=== PATIENT | male | born 1995 | race Caucasian/White ===

== ENCOUNTER 2021-02-14 14:54 | Emergency (ER) | payer SELFPAY ==
[~2021-02-14] VITALS: Ht 170.2 cm; Wt 86.2 kg
[2021-02-14 15:25] VITALS: BP_SYST 137
[2021-02-14] MEDS ORDERED: BACITRACIN 1 GM OINT TP ONE (16:58)
[2021-02-14] MEDS ORDERED: CEPH500C2 PO (17:09)
[2021-02-14] MEDS ORDERED: BACTROBAN TP (17:10)
[2021-02-14 17:30] VITALS: BP_SYST 131
== END 2021-02-14 17:30 | disposition home or self-care (01) ==
LOC: SED 14:54
DX: S62.605A Fracture of unspecified phalanx of left ring finger, initial encounter for closed fracture (principal); S61.315A Laceration without foreign body of left ring finger with damage to nail, initial encounter; W22.8XXA Striking against or struck by other objects, initial encounter; Y93.89 Activity, other specified; Y92.89 Other specified places as the place of occurrence of the external cause; Y99.8 Other external cause status
CPT/HCPCS: 73140-TC; 99283; 99285

== ENCOUNTER 2021-06-29 10:38 | Outpatient (CLI) | payer BC ==
[~2021-06-29 10:38] MED LIST: BACTROBAN TP; CEPH500C2 PO
[2021-06-29 12:10] LABS: BILIRUBIN,URINE NEGATIVE (NEGATIVE); BLOOD, URINE NEGATIVE (NEGATIVE); CLARITY/URINE CLEAR (CLEAR); COLOR,URINE YELLOW (YELLOW); GLUCOSE,URINE NEGATIVE (NEGATIVE); KETONES,URINE NEGATIVE (NEGATIVE); LEUKOCYTE ESTERASE ,URINE NEGATIVE (NEGATIVE); NITRITE, URINE NEGATIVE (NEGATIVE); PROTEIN URINE NEGATIVE (NEGATIVE); UROBILINOGEN,URINE 0.2 (0.2-1.0)
[2021-06-29 12:22] LABS: BASOPHILS # (AUTO) 0.1 K/uL (0.0-0.2); BASOPHILS % (AUTO) 0.8 % (0.0-2.0); EOSINOPHILS # (AUTO) 0.1 K/uL (0.0-0.4); EOSINOPHILS % (AUTO) 1.7 % (0.0-4.0); HEMATOCRIT 46.7 % (36-54); HEMOGLOBIN 15.6 g/dL (14.0-18.0); LYMPHOCYTES # (AUTO) 2.3 K/uL (1.0-5.5); LYMPHOCYTES % (AUTO) 30.6 % (20.5-51.5); MEAN CORPUSCULAR HEMOGLOBIN 30 pg (27-31); MEAN CORPUSCULAR HGB CONC 34 % (32-36); MEAN CORPUSCULAR VOLUME 89 fL (79.0-98.0); MONOCYTES # (AUTO) 0.7 K/uL (0.0-1.0); MONOCYTES % (AUTO) 8.7 % (1.7-9.3); NEUTROPHILS # (AUTO) 4.4 K/uL (1.8-7.7); NEUTROPHILS % (AUTO) 58.2 % (40.0-70.0); PLATELET COUNT (AUTO) 202 K/uL (130-430); RED BLOOD CELL COUNT(AUTO) 5.25 MIL/uL (4.2-6.2); RED CELL DISTRIBUTION WIDTH 14.1 % (9.0-15.0); WHITE BLOOD COUNT (AUTO) 7.6 K/uL (4.8-10.8)
[2021-06-29 13:25] LABS: ALBUMIN 3.9 g/dL (3.4-4.8); CALCIUM 9.4 mg/dL (8.4-11.0); CREATININE 0.85 mg/dL (0.55-1.30); PHOSPHORUS 2.8 mg/dL (2.7-4.5); POTASSIUM 4.6 mmol/L (3.5-5.1); TOTAL BILIRUBIN 0.7 mg/dL (0.0-1.0)
== END 2021-06-29 21:19 | disposition home or self-care (01) ==
LOC: SLB 10:38
PROVIDERS: ATTEND Specialist
DX: Z00.00 Encounter for general adult medical examination without abnormal findings (principal); E78.5 Hyperlipidemia, unspecified
CPT/HCPCS: 36415; 80053; 80061; 81003; 82306; 83735; 84100; 85025